=== PATIENT | male | born 1945 | race Caucasian/White ===

== ENCOUNTER 2017-07-11 12:41 | Emergency (ER) | payer MEDICARE ==
--- NOTE | 2017-07-11 13:29 | RAD ---
3 VIEWS RIGHT HAND: Date: 07/11/17 COMPARISON: None. HISTORY: Avulsion injury to palm, cut left hand with a saw. FINDINGS: Lateral examination demonstrates some soft tissue irregularity in the palmar aspect of the hand, con sistent with the provided history of soft tissue injury. No discrete radiopaque foreign body is note d. There is degenerative change at the radiocarpal joint, as well as the first interphalangeal joint. T here are scattered degenerative changes involving the second and third metacarpophalangeal joints, a s well as the second through fifth proximal and distal interphalangeal joints. There is no displaced fracture or evidence of dislocation appreciated. IMPRESSION: Soft tissue injury with no fracture or evidence of dislocation seen. POS: [facility]
== END 2017-07-11 13:55 | disposition home or self-care (01) ==
LOC: SCSER 12:41
DX: S61.411A Laceration without foreign body of right hand, initial encounter (principal); S61.212A Laceration without foreign body of right middle finger without damage to nail, initial encounter; S61.210A Laceration without foreign body of right index finger without damage to nail, initial encounter; E78.5 Hyperlipidemia, unspecified; I10 Essential (primary) hypertension; Z79.899 Other long term (current) drug therapy; W45.8XXA Other foreign body or object entering through skin, initial encounter; Y92.009 Unspecified place in unspecified non-institutional (private) residence as the place of occurrence of the external cause
CPT/HCPCS: 12002

== ENCOUNTER 2018-08-22 09:01 | Outpatient (CLI) | payer MEDICARE ==
--- NOTE | 2018-08-22 10:53 | RAD ---
LUMBAR SPINE TWO VIEWS: History: Low back pain. FINDINGS/IMPRESSION: There are post op changes of posterior spinal fusion with right sided pedicle screws and vertical int erlocking alisia at L4-5 level in good position and alignment. Intradiscal prostheses are present at L3- 4 and L4-5 levels. Degenerative changes are noted. No acute fracture, subluxation, or bony destructio n is seen. POS: [facility]
== END 2018-08-22 09:02 | disposition home or self-care (01) ==
LOC: BICRAD 09:01
PROVIDERS: ATTEND Internal Medicine
DX: M54.5 Low back pain (principal); M47.816 Spondylosis without myelopathy or radiculopathy, lumbar region; Z98.1 Arthrodesis status
CPT/HCPCS: 72100

== ENCOUNTER 2018-09-29 08:17 | Outpatient (CLI) | payer MEDICARE ==
--- NOTE | 2018-09-29 11:30 | MRI ---
MRI OF THE LUMBAR SPINE WITHOUT AND WITH CONTRAST: COMPARISON: None. HISTORY: Degenerative disk disease. 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 Previous low back surgery. TECHNIQUE: Multiplanar, multisequence MR images obtained of the lumbar spine without and with IV contrast. FINDINGS: The patient is status post posterior fusion of L3 through L5. Disk spaces are seen in L3-4 and L4-5 disk spaces. Right-sided laminectomy screws remain spanning the L4 and L5 level. Laminectomies have also been performed in the lower lumbosacral spine. The vertebral bodies demonstrate normal height without fracture or subluxation. Generalized disk desiccation is seen. The conus medullaris terminates normally at L1. The prevertebral soft tissues are unremarkable. No abnormal enhancement is seen on this examination. T12-L1: Unremarkable. L1-2: A moderate disk-osteophyte complex is seen. Mild bilateral posterior facet arthrosis. Modera te central canal stenosis. Mild bilateral neural foraminal stenosis. L2-3: A moderate disk-osteophyte complex is seen. Mild bilateral posterior facet arthrosis. Mild c entral canal stenosis. No neural foraminal stenosis. L3-4: This level was used. No posterior facet arthrosis. No central canal stenosis. No neural for aminal stenosis. L4-5: This level was fused. Mild bilateral posterior facet arthrosis. No central canal stenosis. The right neural foramen could not be assessed secondary to artifact from the patient's hardware. Mi ld left neural foraminal stenosis. L5-S1: A moderate disk-osteophyte complex is seen. Mild bilateral posterior facet arthrosis. No ce ntral canal stenosis. Moderate bilateral neural foraminal stenosis. IMPRESSION: Postsurgical changes and degenerative changes of the lumbar spine as above. POS: [facility]
== END 2018-09-29 08:18 | disposition home or self-care (01) ==
LOC: BICMRI 08:17
PROVIDERS: ATTEND Neurological Surgery
DX: M51.36 Other intervertebral disc degeneration, lumbar region (principal); M47.816 Spondylosis without myelopathy or radiculopathy, lumbar region; Z98.890 Other specified postprocedural states
CPT/HCPCS: 72158; 82565